=== PATIENT | female | born 2000 | race African-American/Black ===

== ENCOUNTER 2024-10-02 17:34 | Emergency (ER) | payer SELFPAY ==
[2024-10-02 17:38] VITALS: BP 136/85; PULSE 104; RESP 16; TEMP 36.4; O2SAT 98
[2024-10-02 18:48] LABS: BEDSIDEPREGUCG Negative (Negative)
--- OUTSIDE RECORDS SUMMARY | 2024-10-02 19:21 | XMS_ITS | Clinical Summary ---
Author Organization [facility] [employer] Address [address] [place] [address] Care Team Providers Care Experimental Preflight Mechanic Name Role Phone Lara Ko MD Primary Care Provider [phone] Source Comments [facility] [employer],non-owned Affiliates and Associated Physician Practices is amultiple site organization consisting of ambulatory clinics and hospital sitesin [place], [place], [place] and [place]. This disclosure is being madepursuant to the Care Everywhere program and may not contain all information available regarding this patient. Last updated 17.[facility] [employer] Allergies No known active allergies Medications * This document contains information received from the source organization and may not represent a complete record from that organization. * Be aware that medications may not be up to date on this document. Alwaysverify current medications with the patient. buPROPion SR 12hr (Wellbutrin SR) 200 MG tablet Take 1 (one) tablet by mouth once daily for 30 days 30 tablet 4 Active busPIRone (Buspar) 7.5 MG tablet Take 1 (one) tablet by mouth 2 times daily for 90 days 180 tablet 4 Active hydrOXYzine HCl (Atarax) 25 MG tablet Take 1 (one) tablet by mouth 3 times daily as needed (anxiety) 90 tablet 4 Active traZODone (Desyrel) 50 MG tablet Take 1 (one) tablet by mouth nightly as needed for Insomnia 90 tablet 4 Active azelastine (Astelin) 0.1 % nasal spray [place] 2 (two) sprays into the nose 2 times daily 4 Active cetirizine (ZyrTEC) 10 MG tablet Take 1 (one) tablet by mouth once daily 4 Active albuterol HFA (Proventil; Ventolin; Proair) 108 (90 Base) MCG/ACT inhaler Inhale 2 (two) puffs by mouth every 6 hours as needed 4 Active metFORMIN (Glucophage) 500 MG tablet TAKE 1 TABLET BY MOUTH TWICE DAILY WITH MEALS 180 tablet 1 4 Active ampicillin (Principen) 500 MG capsule Take 1 (one) capsule by mouth 4 times daily Active metroNIDAZOLE (Flagyl) 500 MG tablet Take 1 (one) tablet by mouth 2 times daily 14 tablet 4 Active lidocaine (Aspercreme/Gold Rosenthal/Predator/Ne uromed7/Xolido Xp) 4 % cream Apply 1 Application to affected area 2 times daily as needed 30 g 4 Active HYDROcodone-acet aminophen (Britton) 5-325 MG tabletIndication s:Genital herpes simplex, unspecified site Take 1 (one) tablet by mouth every 6 hours as needed for Pain 12 tablet 4 Active Active Problems Problem Noted Date Diagnosed Date Moderate episode of recurrent major depressive d isorder 03/24/2023 Bipolar disorder 03/24/2023 PTSD (post-traumatic stress disorder) 03/24/2023 Vaginal candidiasis 03/24/2023 Obesity, Class III, BMI 40-49.9 (morbid obesity) 03/24/2023 Mild intermittent asthma, uncomplicated 01/15/20 23 Generalized anxiety disorder 01/14/2023 Type 2 diabetes mellitus wit hout complication, without long-term current use of insulin 01/14/2023 Allergic rhinitis 06/02/2013 01/14/2023 Resolved Problems Problem Noted Date Diagnosed Date Resolved Date Exposure to chlamydia 03/24/20232023 Other microscopic hematuria 01/19/2023 03/24/2023 Immunizations Immunization Administration Dates Next Due DTaP VACCINE IM (6wk-6yrs) 09/23/2004,,1999,06/02,1999 HEP A PEDS 2 DOSE 09/18/2013,11/25/2006 HEP B VACCINE, ADULT 3 DOSE 1999 HEP B VACCINE, PED/ADOL 1999,1999, HIB VACCINE 1999 HIB-PRP-OMP 3 DOSE 1999,1999 HIB-PRP-T 4 DOSE 02/12/2000,1999 Human Papilloma Virus Nineva lent Vaccine 10/10/2015,07/10/2015,04/02/2015 MENINGOCOCCAL ACWY (MCV4P) VAC IM 09/18/2013 MENINGOCOCCAL ACWY MENVEO 04/07/2016 MMR VACCINE 09/23/2004,02/12/2000 PNEUMOCOCCAL PCV7 CONJ, PEDS 03/09/2001,06/04/19,02/12/2000 PNEUMOCOCCAL PPV VACCINE 03/09/2001,02/12/2000 POLIO IPV 09/23/2004, 1,1999, TDAP, HISTORIC VACCINE 09/18/2013 VARICELLA 11/25/2006,02/12/2000 Family History Medical History Relation Name Comments Diabetes - Type 2 Father Bipolar Disorder Maternal Grandmother Asthma Mother Bipolar Disorder Mother Diabetes - Type 2 Mother Other - Gastrointestinal Mother IBS Relation Name Status Comments Father Alive Maternal Grandfather Alive Maternal Grandmother Mother Alive Paternal Grandfather Alive Paternal Grandmother Alive Sister Anxiety Social History Tobacco Use Types Packs/Day Years Used Date Smoking Tobacco: Never Smokeless Tobacco: Never Tobacco Cessation:Counseling Given: Not Answered Alcohol Use Standard Drinks/Week Comments Yes 0 (1 standard drink = 0.6 oz pur e alcohol) 2-4 times a month PHQ-2 Answer Date Recorded Patient Health Questionnaire-2 Score 0 05/10/2023 Comments Unknown Sex and Gender Information Value Date Recorded Sex Assigned at Female 01/14/2023 12:51 PM GRINDING WHEEL DRESSER Legal Sex Female 5:39 AM GRINDING WHEEL DRESSER Gender Identity Not on file Sexual Orientation Not on file Occupation Industry Job Start Date Job End Date [employer] Not on file Not on file Not on file Last Filed Vital Signs Vital Sign Reading Time Taken Comments Blood Pressure 117/58 09/25/2023 3:13 PM CDT Pulse 105 09/25/2023 3:13 PM CDT Temperature 36.4 C (97.6 F) 09/25/2023 3:13 PM CDT Respiratory Rate 16 09/25/2023 3:13 PM CDT Oxygen Saturation 97% 09/25/2023 3:13 PM CDT Inhaled Oxygen Concentration - - Weight 116.1 kg (256 lb) 09/25/2023 3:13 PM CDT Height 165.1 cm (5' 5) 09/25/2023 3:13 PM CDT Body Mass Index 42.6 09/25/2023 3:13 PM CDT Plan of Treatment Health Maintenance Due Date Last Done Comments DIABETES-HGB A1C 07/16/2023 01/14/2023, 07/07/2022 PAP SMEAR 08/21/2023 08/20/2020, 08/08 (Done Outside Per Report) DTAP/TDAP/TD VACCINES (7 - Td or Tdap) 09/19/2023 09/18/2013, 09/23/2004, 06/03/2000, Additional history exists COVID-19 VACCINE (1 - season) 2023 DIABETES - URINE PROTEIN SCREENING 02/09/2024 01/14/2023 DIABETES-FOOT EXAM WITH MONOFILAMENT 03/24/2024 03/24/2023 DIABETES-SERUM CREATININE 08/09/20242023, 07/29/2023, 01/14/2023, Additional history exists CHLAMYDIA/GONORRHEA SCREENING 08/10/2024 08/11/2023, 06/09/2023, 05/10/2023, Additional history exists INFLUENZA VACCINE (#1) 2024 DIABETES RETINOPATHY SCREENING 03/24/2025 03/24/2023 PNEUMOCOCCAL VACCINE (2 of 2 - PCV20 or PCV21) 2049 03/09/2001, 03/09/2001, 06/03/2000, Additional history exists ZOSTER VACCINE (1 of 2) 2049 HEPATITIS B VACCINE Completed 1999, 1999, 1999, Additional history exists HIB VACCINE Completed 02/12/2000, 04/1999, 1999, Additional history exists HPV VACCINE Completed 10/10/2015, 02/2015, 04/02/2015 MENINGOCOCCAL GROUPS A/C/Y/W VACCINE Completed 04/07/2016, 09/18/2013 HEPATITIS C SCREENING Completed 01/14/2023 HIV SCREENING Completed 08/10/2023, 01/14/2023 MENINGOCOCCAL (Group B) VACCINE SHARED DECISION-MAKING Aged Out No longer eligible based on patient's age to complete this topic Procedures Procedure Name Priority Date/Time Associated Diagnosis Comments CHLAMYDIA + GC AMPLIFIED PROBE STAT 08/11/2023 12:13 AM CDT HIV-1 HIV-2 ANTIBODY + HIV P24 AG PANEL STAT 08/10/2023 11:20 PM CDT COMPREHENSIVE METABOLIC PANEL STAT 08/10/2023 8:19 PM CDT PROC OPH DIAB BILAT RET SCRN WCOMP INTERP Routine 03/24/2023 11:10 AM GRINDING WHEEL DRESSER Type 2 diabetes mellitus without complication, without long-term current use of insulin HEPATITIS C ANTIBODY Routine 01/14/2023 2:17 PM GRINDING WHEEL DRESSER Need for hepatitis C screening test MICROALB/CREAT URINE - POINT OF CARE (AMB) Routine 01/14/2023 1:30 PM GRINDING WHEEL DRESSER Type 2 diabetes mellitus without complication, without long-term current use of insulin HEMOGLOBIN A1C - POINT OF CARE (AMB) Routine 01/14/2023 1:30 PM GRINDING WHEEL DRESSER Type 2 diabetes mellitus without complication, without long-term current use of insulin from Last 3 Months or Most Recently Relevant to Health Maintenance Results * CHLAMYDIA + GC AMPLIFIED PROBE (08/11/2023 12:13 AM CDT) Chlamydia Amplified Probe Negative Negative 08/11/2023 7:55 PM CDT [facility] GC Amplified Probe Negative Negative 08/11/2023 7:55 PM CDT [facility] Microbiology ENTIRE ENDOCERVIX / Unknown Collection / Unknown 08/11/2023 12:13 AM CDT 08/11/2023 12:17 AM CDT Narrative [facility] - 08/11/2023 7:55 PM CDT Results based on detection/no detection of ribosomal RNA by amplified method. Mo Meadows MD LAB - MICROBIOLOGY OR DERABLES Final Result [facility] [address] [place] [address], [facility] [phone] * HIV-1 HIV-2 ANTIBODY + HIV P24 AG PANEL (08/10/2023 11:20 PM CDT) HIV1/2 Ab + P24 Ag Non Reactive Non Reactive 08/11/2023 10:28 AM CDT [facility] Blood BLOOD SPECIMEN / Unknown Venipuncture / Unknown 08/10/2023 11:20 PM CDT 08/10/2023 11:26 PM CDT Narrative [facility] - 08/11/2023 10:28 AM CDT No Laboratory evidence of HIV infection. Mo Meadows MD LAB - CHEMISTRY ORDER EDUARDO Final Result Performing Organization Address City/[facility]/ZIP Co de Phone Number [facility] [address] [place] [address] * (ABNORMAL) COMPREHENSIVE METABOLIC PANEL (08/10/2023 8:19 PM CDT) Glucose 124(H) 70 - 105 mg/dL 08/10/2023 8:41 PM CDT [facility] Sodium 140 136 - 145 mmol/L 08/10/2023 8:41 PM CDT [facility] Potassium 3.7 3.5 - 5.1 mmol/L 08/10/2023 8:41 PM CDT [facility] Chloride 109(H) 98 - 107 mmol/L 08/10/2023 8:41 PM CDT [facility] CO2 22 22 - 29 mmol/L 08/10/2023 8:41 PM CDT [facility] Calcium 9.6 8.4 - 10.4 mg/dL 08/10/2023 8:41 PM CDT [facility] Anion Gap 9 6 - 16 mmol/L 08/10/2023 8:41 PM CDT [facility] BUN 13 5.3 - 18.7 mg/dL 08/10/2023 8:41 PM [facility] Creatinine 0.70 0.57 - 1.11 mg/dL 08/10/2023 8:41 PM [facility] Alkaline Phosphatase 79 40 - 150 U/L 08/10/2023 8:41 PM [facility] ALT 25 0 - 55 U/L 08/10/2023 8:41 PM [facility] AST 20 5 - 34 U/L 08/10/2023 8:41 PM [facility] Protein Total 7.9 6.4 - 8.3 gm/dL 08/10/2023 8:41 PM [facility] Albumin 3.8 3.4 - 5.0 gm/dL 08/10/2023 8:41 PM [facility] Bilirubin Total 0.6 0.2 - 1.2 mg/dL 08/10/2023 8:41 PM [facility] eGFR by CKD-EPI >90 >=90 mL/min/1.7 3 m2 08/10/2023 8:41 PM [facility] Blood BLOOD SPECIMEN / Unknown Venipuncture / Unknown 08/10/2023 8:19 PM CDT 08/10/2023 8:25 PM CDT Juan RUSSELL LAB - CHEMISTRY ORDERABLES Final Result Performing Organization Address City/State/[facility] Co de Phone Number [facility] [place], [place] [id number] * (ABNORMAL) PROC OPH DIAB BILAT RET SCRN WCOMP INTERP (03/24/2023 11:10 AM GRINDING WHEEL DRESSER) IDX DR SCREEN Diabetic Retinopathy Detected: ETDRS level 35 or higher and/or Diabetic Macular Edema (A) [facility] Comment: Next Steps: Refer to professional services specialist IDx Submission ID: [id number] Results were produced by a system that provides an artificial intelligence (AI) interpretation A positive result indicates a high risk of diabetic retinopathy with a severity of ETDRS level 35 or higher and/or macular edema. IDx-DR diabetic retinopathy exam does not replace a comprehensive eye exam. 03/24/2023 11:1 0 AM GRINDING WHEEL DRESSER us Lara Ko MD PROCEDURE/MINOR SURGICAL ORD ERABLES Final Result Performing Organization Address [facility]/ZIP Co de Phone Number [facility] * HEPATITIS C ANTIBODY (01/14/2023 2:17 PM GRINDING WHEEL DRESSER) [facility] Hepatitis C Antibody Non Reactive Non Reactive [facility] INSURANCE BILL Comment: Non Reactive - Antibodies to Hepatitis C virus (HCV) were no t detected, result does not exclude early acute HCV infection. Blood BLOOD SPECIMEN / Unknown 01/14/2023 2:17 PM GRINDING WHEEL DRESSER 01/14/2023 Narrative Resulting Agency Comment Lab Testing performed at: [facility] [address] [phone] us Evelyn Sawyer APRNRAJAT LAB - CHEMISTRY ORDERABLES Final Result Performing Organization Address [facility] de Phone Number [facility] INSURANCE BILL [address] [place] [address] * MICROALB/CREAT URINE - POINT OF CARE (AMB) (01/14/2023 1:30 PM GRINDING WHEEL DRESSER) [facility] QC Verified Yes Yes [facility] Microalbumin 150 mg/dL [facility] F [facility] Creatinine POCT 300 mg/dL [facility] Microalbumin/Crea tinine Ratio 30-300 mg/g [facility] Urine URINE / Unknown 01/14/2023 1 :30 PM GRINDING WHEEL DRESSER us Lara Ko MD LAB - POINT OF CARE ORDERABL ES Final Result Performing Organization Address [facility] Co de Phone Number [facility] [address] [place] [address], [facility] [phone] * HEMOGLOBIN A1C - POINT OF CARE (HgbA1C) (01/14/2023 1:30 PM GRINDING WHEEL DRESSER) [facility] Hemoglobin A1c POCT 6.5 % [facility] Expiration Date 08/16/2024 [facility] Lot # [id number] [facility] QC Verified Yes Yes [facility] Blood BLOOD SPECIMEN / Unknown 01/14/2023 1:30 PM GRINDING WHEEL DRESSER us Evelyn Sawyer PHONOGRAPH CARTRIDGE ASSEMBLER-PHYSIOTHERAPIST'S ASSISTANT LAB - POINT OF CARE ORDERAB LES Final Result [facility] [address] [place] [address], [facility] [phone] from Last 3 Months or Most Recently Relevant to Health Maintenance Insurance [facility] Care Teams Experimental Preflight Mechanic Relationship Specialty Start Date End Date Lara Ko MD [address] [place] [address] PCP - General Family Medicine 01/14/23
--- OUTSIDE RECORDS SUMMARY | 2024-10-02 19:21 | XMS_ITS | Clinical Summary ---
Author Organization [facility] Address [address] [place] [address] Care Team Providers Care Staff Pharmacist Hospital Name Role Phone No, Physician Primary Care Provider [phone] Allergies Active Allergy Reactions Criticality Noted Date Comments Penicillins Hives Medium 08/09/2024 Medications norethindrone-e. estradioL-iron (Microgestin FE 02/27, ,) 1 mg-20 mcg (21)/75 mg (7) per tablet Take 1 tablet by mouth daily 84 tablet 3 08/20/2020 Active Active Problems No known active problems Encounters Date Type Department Care Team Description 08/09/2024 11:14 AM CDT - 08/09/2024 4:01 PM CDT Emergency [facility] Emergency Department [address] [place] [id number] Briseida Desai MD Exposure to chemical inhalation (Primary Dx) Discharge Disposition: Discharge to home or self care from Last 3 Months Surgical History Surgery Date Site/Laterality Comments NO PAST SURGERIES Medical History Medical History Date Comments Diabetes mellitus (HCC) Asthma Migraines Anxiety Family History Medical History Relation Name Comments Breast cancer Neg Hx Colon cancer Neg Hx Ovarian cancer Neg Hx Uterine cancer Neg Hx Social History Tobacco Use Types Packs/Day Years Used Date Smoking Tobacco: Never Personal Safety Answer Date Recorded Have you ever been in or are you currently in a harmful physical or emotional relationship or is someone making you feel afraid or unsafe? Denies 08/09/2024 Comments No Sex and Gender Information Value Date Recorded Sex Assigned at Not on file Legal Sex Female 10:40 PM LEVER MILLER Gender Identity Not on file Sexual Orientation Not on file Obstetrics History Para Term AB IAB SAB Ectopic Multiple Livin g Live Births 0 0 0 0 0 0 0 0 0 0 0 Last Filed Vital Signs Vital Sign Reading Time Taken Comments Blood Pressure 120/77 08/09/2024 3:59 PM CDT Pulse 96 08/09/2024 3:59 PM CDT Temperature 36.6 C (97.8 F) 08/09/2024 11:21 AM CDT Respiratory Rate 18 08/09/2024 3:59 PM CDT Oxygen Saturation 99% 08/09/2024 3:59 PM CDT Inhaled Oxygen Concentration - - Weight 114.8 kg (253 lb) 08/09/2024 10:56 AM CDT Height 165.1 cm (5' 5) 08/09/2024 10:56 AM CDT Body Mass Index 42.1 08/09/2024 10:56 AM CDT Plan of Treatment Health Maintenance Due Date Last Done Comments Depression Screening 1999 Cervical Cancer Screening 08/20/2021 08/20/2020 Regular Well Visit/Exam 18-64 08/20/2021 08/20/2020 DTaP/Tdap/Td Vaccine (7 - Td or Tdap) 09/19/2023 09/18/2013, 09/23/2004, 06/03/2000, Additional history exists Influenza Vaccine (#1) 2024 Pneumococcal vaccine <65 (2 of 2 - PCV20 or PCV21) 2049 03/09/2001, 03/09/2001, 06/03/2000, Additional history exists Hepatitis B Screening Completed 1999 , 1999, 1999, Additional history exists Varicella Vaccines Completed 11/25/2006, 02/12/2000 HPV Vaccines Completed 10/10/2015, 02/2015, 04/02/2015 Hepatitis C Screening Completed 12/17/2020 Procedures Procedure Name Priority Date/Time Associated Diagnosis Comments XR CHEST PA LATERAL 2 VIEWS ED 08/09/2024 2:00 PM CDT ECG 12-LEAD STAT 08/09/2024 11:35 AM CDT HEPATITIS C ANTIBODY Routine 12/17/2020 3:52 PM LEVER MILLER Screen for sexually transmitted diseases PAP WITH REFLEX TO HIGH RISK HPV Routine 08/20/2020 3:41 PM CDT Well woman exam with routine gynecological exam from Last 3 Months or Most Recently Relevant to Health Maintenance Results * XR Chest Pa Lateral 2 Vw (08/09/2024 2:00 PM CDT) Anatomical Region Laterality Modality Body, Chest N/A Computed Radiogr aphy 08/09/2024 2:12 PM CDT Impressions 08/09/2024 2:12 PM CDT No prior comparisons. The lungs are clear. There are no focal pneumonic consolidations or pleural effusions. No interstitial edema. No pneumothorax. Heart size is normal. Electronically signed by: Arthur Barry M.D. Narrative 08/09/2024 2:12 PM CDT EXAMINATION: XR CHEST PA LATERAL 2 VIEWS Procedure Note Arthur Barry MD - 08/09/2024 EXAMINATION: XR CHEST PA LATERAL 2 VIEWS IMPRESSION: No prior comparisons. The lungs are clear. There are no focal pneumonic consolidations or pleural effusions. No interstitial edema. No pneumothorax. Heart size is normal. Electronically signed by: Arthur Barry M.D. Tracy RUSSELL IMG XR PROCEDURES Final Re sult * ECG 12 lead (08/09/2024 11:35 AM CDT) 08/09/2024 11:3 5 AM CDT Narrative [facility] - 08/09/2024 12:17 PM CDT Vent Rate: 82 bpm RR Interval: 724 msec AL Interval: 176 msec QRS Duration: 117 msec QT Interval: 378 msec QTC Interval: 417 msec P-R-T [place]: 47 - 78 - 34 degrees IMPRESSION: SINUS RHYTHM MODERATE INTRAVENTRICULAR CONDUCTION DELAY BORDERLINE ECG Electronically Signed By: Denis Wyatt DO, FACC us Briseida Desai MD ECG ORDERABLES Final Res ult [facility] * Hepatitis C antibody (12/17/2020 3:52 PM LEVER MILLER) Hep C Ab Nonreactive Nonreactive [facility] Comment: Interpretive Data Nonreactive: Antibodies to HCV not detected. Does NOT exclude the possibility of recent exposure to HCV. Equivocal: Equivocal for HCV antibodies. Supplemental molecular testing will be automatically performed to determine infection status in accordance with current CDC screening recommendations. Reactive: Positive for HCV antibodies. This may represent current or past HCV infection. Supplemental molecular testing will be automatically performed to determine current infection status in accordance with current CDC screening recommendations. Interpretive data was last revised on 2019. Blood 12/17/2020 3:52 PM LEVER MILLER 12/17/2020 7:13 PM LEVER MILLER us Raquel Wong MD LAB MICROBIOLOGY - GEN ERAL ORDERABLES Final Result Performing Organization Address City/[facility] Co de Phone Number [facility] [address] [facility] Department of Laboratories [place], [place] [id number] * (ABNORMAL) Pap with reflex to High Risk HPV (08/20/2020 3:41 PM CDT) Swab (Pap test) 08/20/2020 3 :41 PM CDT 08/23/2020 7:29 AM CDT Narrative PATHOLOGY [facility] - 08/28/2020 5:03 PM CDT [facility] results best viewed via link to PDF [place] [id number] [place], [place] [address] Tele: Jolanta Collins MD - Rocket Engine Tester CYTOLOGY REPORT Patient Name: KITTY NICHOLS Address: [address] [place] [address] Gender: F : 2000 (Age: 20) Service: Location: [facility] #: [id number] Patient Type: [facility] SPECIMEN Taken: 08/20/2020 Reported: 08/28/2020 Physician(s): aRquel Wong M.D. FINAL DIAGNOSIS: Specimen Type: - ThinPrep Pap w/ reflex HPV Statement of Specimen Adequacy: Source: Cervical/Endocervical - Satisfactory for interpretation - Endocervical /Transformation Zone component present - Case screened using computer assisted imaging technology and manually re- screened by a wide area network systems administrator. General Categorization: - Epithelial cell abnormality Interpretation: - Atypical squamous cells of undetermined significance (ASCUS) - Acute Inflammation - Specimen sent for reflex HPV testing. d/08/28/2020 17:03 Examining Pathologist: Anamaria Edgar SCT(ASCP), [facility] Report Reviewed and Electronically Signed By Carina Meza M.D. Clerical Data Follow A; G0145, 09678 Z01.419 ADDENDA: Addendum Comment Ancillary Testing: HPV High Risk Group (16, 18, 31, 33, 35, 39, 45, 51, 52, 56, 58, 59, 66 and 68) - Detected Reference Range: Not Detected This test was performed using the SHAINA 4800 RAUL Huang (ASCP) Date Ordered: 08/28/2020 Status: Signed Out Date Complete: 08/30/2020 By: RAUL Huang (ASCP) Date Reported: 08/30/2020 CLINICAL DIAGNOSIS AND HISTORY Last Menstrual Period: NA REPORT IMAGES AND/OR SCANNED DOCUMENTS ONLY VIEWABLE IN PDF FORMAT The Pap test is a screening test used to aid in the detection of cervical cancer and its precursors. It should not be the sole means by which malignant and premalignant lesions are diagnosed. Both false negative and false positive results may occur. It also has poor sensitivity for the detection of endometrial lesions and should not be used to evaluate suspected endometrial abnormalities. For these reasons it is most important to obtain Pap tests at regular intervals, as recommended by your physician or nurse practitioner. us Raquel Wong MD LAB CYTOLOGY ORDERABLE S Final Result PATHOLOGY [facility] Laboratory Receiving [address] [place] [address] from Last 3 Months or Most Recently Relevant to Health Maintenance Insurance [employer] [address] [place] [id number] Care Teams Staff Pharmacist Hospital Relationship Specialty Start Date End Date No, Physician PCP - General 07/31/20
[2024-10-02 19:37] LABS: Add Urine Microscopic? YES; Appearance Urine Turbid (Clear); Glucose Urine UA 3+ mg/dL (Negative); Leukocyte Esterase Ur 2+ LEU/UL (Negative); Need Manual Microscopic Reviewed; Nitrate Urine Positive (Negative); Non Pathogenic Casts 0-2; Specific Grav Ur 1.038 (1.001-1.035)
--- NOTE | 2024-10-02 19:50 | ED_ITS ---
HPI - General Adult General Chief complaint: Urogenital-Female Stated complaint: uti? abd pain, hematuria Time Seen by Provider: 10/02/24 18:01 History of Present Illness HPI narrative: Patient is a 24-year-old female who presents ER with concerns for UTI. She has been having hematuria for several days as well as burning around her prior reports in urinary frequency and urgency. She has tried azo without improvement. No improvement with cranberry supplements. Related Data Allergies Allergy/AdvReac Type Severity Reaction Status Date / Time Penicillins AdvReac Intermediate Hives Verified 10/02/24 17:37 Review of Systems Constitutional: Constitutional: Reports no additional constitutional complaints Gastrointestinal: Gastrointestinal: Reports no additional gastrointestinal complaints Genitourinary: Genitourinary: Reports no additional female genitourinary complaints PMFSH Past Medical History Medical History (Updated 10/02/24 @ 19:53 by Kai Armas MD) Healthy female adult Exam Narrative: GENERAL: Well-appearing, well-nourished, and in no acute distress. HEAD: Normocephalic, atraumatic. ENT: Mucous membranes moist. CHEST: Clear to auscultation. No respiratory distress. HEART: Regular rate and rhythm. Normal peripheral pulses. ABDOMEN: Soft, nontender, nondistended. EXTREMITIES: Normal range of motion. No edema. NEURO: Alert and oriented x3. PSYCH: Normal mood and affect. Course Course Emergency Course: Urinalysis consistent with hemorrhagic cystitis. Discharge home with cephalexin. Vital Signs Vital signs: Vital Signs Temperature 97.5 F L 10/02/24 17:38 Pulse Rate 104 H 10/02/24 17:38 Respiratory Rate 16 10/02/24 17:38 Blood Pressure 136/85 10/02/24 17:38 Pulse Oximetry 98 10/02/24 17:38 Oxygen Delivery Room Air 10/02/24 17:38 Temperature 97.5 F L 10/02/24 17:38 Pulse Rate 104 H 10/02/24 17:38 Respiratory Rate 16 10/02/24 17:38 Blood Pressure 136/85 10/02/24 17:38 Pulse Oximetry 98 10/02/24 17:38 Oxygen Delivery Room Air 10/02/24 17:38 Medical Decision Making Vital Signs Vital Signs: Vital Signs Temperature 97.5 F L 10/02/24 17:38 Pulse Rate 104 H 10/02/24 17:38 Respiratory Rate 16 10/02/24 17:38 Blood Pressure 136/85 10/02/24 17:38 Pulse Oximetry 98 10/02/24 17:38 Oxygen Delivery Room Air 10/02/24 17:38 Temperature 97.5 F L 10/02/24 17:38 Pulse Rate 104 H 10/02/24 17:38 Respiratory Rate 16 10/02/24 17:38 Blood Pressure 136/85 10/02/24 17:38 Pulse Oximetry 98 10/02/24 17:38 Oxygen Delivery Room Air 10/02/24 17:38 Lab Data Labs: Lab Results 10/02/24 10/02/24 Range/Units 18:46 18:47 Urine Color Yellow (Yellow) Urine Appearance Turbid H (Clear) Urine pH 6.0 (5.0-9.0) Ur Specific [place] 1.038 H (1.001-1.035) Urine Protein 2+ H (Negative) mg/dL Urine Glucose (UA) 3+ H (Negative) mg/dL Urine Ketones Trace H (Negative) mg/dL Ur Blood (Man) 3+ H (Negative) Urine Nitrate Positive H (Negative) Urine Bilirubin Negative (Negative) Urine Urobilinogen 1.0 (<2.0) mg/dL Add Ur Microanalysis Reviewed Leukocyte Esterase Rfl 2+ H (Negative) [facility]/UL Urine RBC >100 H (0-2) /hpf Urine WBC >100 H (0-3) /hpf Ur Squamous Epith Cells Few (Few) /hpf Urine Bacteria 4+ /hpf Urine Casts 0-2 POC Urine HCG, Qual Negative (Negative) Discharge Plan Discharge Clinical Impression: Acute hemorrhagic cystitis Patient Disposition: Home Condition: Stable Instructions: Urinary Tract Infection in Women (ED) Additional Instructions: You should return to the emergency department if you develop severe nausea and vomiting and are unable to keep liquids down, if you develop severe back/flank or stomach pain, or if your symptoms are not clearly improving at home. Patient Language: Ch[place] Prescriptions: New cephalexin 500 mg capsule 500 mg PO Q12H Qty: 14 0RF Follow-up/Referrals: Armin,MD Denis [Primary Care Provider] - 1 Week
[2024-10-02 20:17] VITALS: BP 110/59; PULSE 79; RESP 18; TEMP 36.6; O2SAT 98
== END 2024-10-02 20:17 | disposition home or self-care (01) ==
PROVIDERS: Physician Assistant; Emergency Provider Emergency Medicine; PCP Internal Medicine
DX: N30.01 Acute cystitis with hematuria (principal)
CPT/HCPCS: 81001; 81025; 87086; 99283